=== PATIENT | female | born 2000 | race Caucasian/White ===

== ENCOUNTER 2022-02-20 08:37 | Inpatient (IN) | payer BC ==
[2022-02-20 09:45] LABS: Fetal Membranes Rupture RUPTURE DETECTED (No Rupture)
[2022-02-20] MEDS ORDERED: HYDROcodone/Acetaminophen 5/325 mg Tablet PO PRN ×2 (10:24)
[2022-02-20] MEDS ORDERED: Acetaminophen 500 MG TAB PO PRN (10:24)
[2022-02-20] MEDS ORDERED: Ondansetron PF 4 MG/2 ML Vial IVP PRN (10:24)
[2022-02-20] MEDS ORDERED: Misoprostol 200 MCG TAB PR PRN (10:24)
[2022-02-20] MEDS ORDERED: Ibuprofen 800 MG TAB PO PRN (10:24)
[2022-02-20] MEDS ORDERED: Promethazine HCl 25 MG/ML VIAL IM PRN (10:24)
[2022-02-20] MEDS ORDERED: Carboprost 250 MCG/ML AMP IM PRN (10:24)
[2022-02-20] MEDS ORDERED: Butorphanol Tartrate 1 MG/ML VIAL SLOW IVP PRN (10:24)
[2022-02-20] MEDS ORDERED: Methylergonovine 0.2 MG/ML VIAL IM PRN (10:24)
[2022-02-20] MEDS ORDERED: hydrALAZINE 20 MG/ML VIAL SLOW IVP PRN (10:24)
[2022-02-20] MEDS ORDERED: Lidocaine 1% (PF) 30 ML VIAL SC PRN (10:24)
[2022-02-20] MEDS ORDERED: Diphenoxylate HCl/Atropine Tablet PO PRN ×2 (10:24)
[2022-02-20] MEDS ORDERED: Lactated Ringer's 1,000 ML IV SCH (10:30)
[2022-02-20] MEDS ORDERED: NS w/ Oxytocin 30 units 500 ML IV SCH ×2 (10:30)
[2022-02-20 10:54] LABS: Hemoglobin 11.3 g/dL (12.0-15.5); Mean Corpuscular HGB CONC 33.1 g/dL (32.0-36.0); Mean Corpuscular Hemoglobin 26.5 pg (27.0-33.0); Mean Corpuscular Volume 79.9 fl (81.6-98.3); Mean Platelet Volume 10.9 fl (7.4-10.4); Platelet Count 212 10x3/uL (150-450); Red Blood Cell (RBC) Count 4.27 10x6/uL (3.90-5.03); White Blood Cell (WBC) Count 8.8 10x3/uL (3.5-10.5)
[2022-02-20] MEDS ORDERED: Penicillin G Potassium 5 MILL.UNITS VIAL ONE (10:54)
[2022-02-20] MEDS ORDERED: NS w/ Oxytocin 30 units 500 ML ONE (10:54)
[2022-02-20 11:22] VITALS: BMI 31.7
[2022-02-20] MEDS ORDERED: Penicillin G Potassium 5 MILL.UNITS in Sodium Chloride 0.9% 100 ML IVPB SCH (11:30)
[2022-02-20 12:08] LABS: HBSAg Index 0.17 S/CO (0-0.99); Hep B Surf Ag Non-Reactive S/CO (NonReactive)
[2022-02-20 12:10] LABS: Syphilis Antibody Nonreactive (Nonreactive); Syphilis Antibody Index 0.05 S/CO (<1.00 Non-Reactive)
[2022-02-20] MEDS ORDERED: Penicillin G 2.5 MILL.units 2.5 MILL.UNITS in Premix Bag 1 BAG IVPB SCH (15:30)
[2022-02-20] MEDS: Fentanyl 2 mcg/Bup 0.1% Cadd 100 ML ONE ×2 (15:42→18:58)
[2022-02-20] MEDS ORDERED: Fentanyl 2 mcg/Bup 0.1% Cadd 100 ML ONE (18:51)
[2022-02-20] MEDS ORDERED: Terbutaline Sulfate 1 MG/ML VIAL ONE (20:04)
[2022-02-20] MEDS ORDERED: Bupivacaine 0.25% HCL 30 ML VIAL ONE (20:04)
[2022-02-20] MEDS ORDERED: Bupivacaine/Epinephrine 0.25% 30 ML VIAL ONE (20:04)
[2022-02-21] MEDS ORDERED: Boostrix 0.5 ML (Tdap) VIAL (>/=7 yrs of age) IM ONE (01:00)
[2022-02-21] MEDS ORDERED: Bisacodyl 10 MG SUPP PR PRN (01:00)
[2022-02-21] MEDS ORDERED: Benzocaine-Menthol 82.5 ML CAN TOP PRN (01:00)
[2022-02-21] MEDS ORDERED: Milk Of Magnesia 30 ML UDCUP PO PRN (01:00)
[2022-02-21] MEDS ORDERED: Lanolin Ointment 7 GM TUBE TOP PRN (01:00)
[2022-02-21] MEDS ORDERED: traMADol HCl 50 MG TAB PO PRN (01:00)
[2022-02-21] MEDS ORDERED: hydrALAZINE 20 MG/ML VIAL SLOW IVP PRN (01:00)
[2022-02-21] MEDS ORDERED: diphenhydrAMINE 25 MG CAP PO PRN (01:00)
[2022-02-21] MEDS ORDERED: Preparation H Ointment 28 GM TUBE PR PRN (01:00)
[2022-02-21] MEDS: Ibuprofen 800 MG TAB PO SCH ×3 (05:34→22:52)
[2022-02-21] MEDS: Docusate 100 MG CAP PO SCH ×2 (09:07→22:52)
[2022-02-21] MEDS: Ferrous Sulfate 325 MG TAB PO SCH (09:07)
[2022-02-21] MEDS: Prenatal Vitamin 1 TAB PO SCH (09:07)
[2022-02-22] MEDS: Ferrous Sulfate 325 MG TAB PO SCH ×2 (00:04→09:04)
[2022-02-22] MEDS: Ibuprofen 800 MG TAB PO SCH ×2 (05:16→14:12)
[2022-02-22 08:32] VITALS: BP 126/61; TEMP 98.6
[2022-02-22] MEDS: Prenatal Vitamin 1 TAB PO SCH (09:04)
[2022-02-22] MEDS: Docusate 100 MG CAP PO SCH (09:04)
== END 2022-02-22 15:25 | disposition home or self-care (01) | DRG 807 ==
LOC: CSHLD/OP 08:37 → CSHLD 10:24 → CSHPP 02-21 02:48
PROVIDERS: ADMIT Obstetrics & Gynecology; ATTEND Obstetrics & Gynecology
PROC: 10E0XZZ Delivery of Products of Conception, External Approach (ICD-10-PCS; principal; 2022-02-21)
PROC: 0KQM0ZZ Repair Perineum Muscle, Open Approach (ICD-10-PCS; 2022-02-21)
DX: O99.824 Streptococcus B carrier state complicating childbirth (principal); Z37.0 Single live birth; O26.893 Other specified pregnancy related conditions, third trimester; Z67.41 Type O blood, Rh negative; Z3A.39 39 weeks gestation of pregnancy; O70.1 Second degree perineal laceration during delivery
CPT/HCPCS: 36415; 51702; 84112; 85027; 86780; 86850; 86870; 86900; 86901; 87340; 99285; J2405; J2540; J2590; J3105; S0020